=== PATIENT | female | born 1985 | race Caucasian/White ===

== ENCOUNTER 2019-06-08 16:36 | Inpatient (IN) ==
[2019-06-08] MEDS ORDERED: ONDANSETRON 4 MG/2 ML VIAL IV PRN (16:55)
[2019-06-08 17:24] LABS: Basophils % 0.2 % (0.0-0.8); Eosinophils % 0.4 % (0.00-10.9); Hematocrit 32.1 VOL% (35.7-47.0); Hemoglobin 10.9 GM/DL (12.0-16.0); Immature Granulocytes % 0.7 %; Immature Granulocytes Absolute 0.07 #; Lymphocytes # 2.1 10*3/uL (1.4-4.0); Lymphocytes % 20.1 % (21.3-54.2); Mean Corpuscular Volume 96.4 FL (87-102); Mean Platelet Volume 11.8 FL (9.6-12.0); Monocytes % 5.3 % (1.7-12.7); Neutrophils % 73.3 % (38.7-73.9); Platelet Count 160 T/CUMM (130-400); Red Blood Count 3.33 MC/CUMM (3.8-5.5); Red Cell Distribution Width 12.4 % (9.3-17.3); White Blood Count 10.7 T/CUMM (4-12)
[2019-06-08 17:43] LABS: Albumin 2.3 G/DL (3.4-5.0); Bilirubin,Total 0.5 MG/DL (0.2-1.0); Calcium 8.1 MG/DL (8.5-10.1); Osmolality,Calculated 280.1 MOS/KG (273-304); Total Protein 6.3 G/DL (6.4-8.3)
[2019-06-08] MEDS ORDERED: FAMOTIDINE 20 MG/2 ML VIAL IV ONE (18:03)
[2019-06-08] MEDS ORDERED: ePHEDrine 50 MG/ML AMP IV PRN (18:03)
[2019-06-08] MEDS ORDERED: diphenhydrAMINE 50 MG/1 ML VIAL IV PRN ×2 (18:03)
[2019-06-08] MEDS ORDERED: NALOXONE 0.4 MG/ML VIAL IV PRN (18:03)
[2019-06-08] MEDS ORDERED: PROMETHAZINE 25 MG/1 ML VIAL IM ONE (18:03)
[2019-06-08] MEDS ORDERED: hydrOXYzine HCL 25 MG/1 ML VIAL IM PRN (18:03)
[2019-06-08] MEDS ORDERED: ONDANSETRON 4 MG/2 ML VIAL IV ONE (18:03)
[2019-06-08] MEDS ORDERED: CITRIC ACID/SODIUM CITRATE 30 ML UDCUP PO ONE (18:03)
[2019-06-08] MEDS: LACTATED RINGERS 1,000 ML IV SCH ×2 (19:45→23:52)
[2019-06-08] MEDS: fentaNYL 2 MCG/ROPIV 0.2% EPID 100 ML EPIDURAL SCH (20:45)
[2019-06-08 21:49] LABS: Apearance,Urine CLEAR (Clear); Bilirubin,Urine Negative (Negative); Blood, Urine Negative (Negative); Glucose,Urine (UA) Negative (Negative); Ketones,Urine 20 mg/dL (Negative); Mucus,Urine Occasional /LPF (Occasional); Nitrite,Urine Negative (Negative); Protein,Urine Negative; RBC,Urine <1 /HPF (0-4); Squamous Epithelial Cell,Urine Occasional /HPF (0-10); Urine Color Yellow (Yellow); Urine Specific Gravity 1.024 (1.001-1.035); Urine Urobilinogen < 2.0 EU/DL (0.2-1.0); WBC,Urine 1 /HPF (0-6)
[2019-06-09] MEDS: OXYTOCIN/LR 20 UNIT/1,000 ML BAG IV SCH ×2 (02:00→10:22)
[2019-06-09] MEDS ORDERED: ACETAMINOPHEN 325 MG TABLET PO PRN (12:41)
[2019-06-09] MEDS ORDERED: RHO(D) IMMUNE GLOBULIN 300 MCG SYRINGE IM ONE (12:41)
[2019-06-09] MEDS ORDERED: LANOLIN 50% CREAM 0.3 OZ TUBE TOP PRN (12:41)
[2019-06-09] MEDS ORDERED: OXYTOCIN/LR 20 UNIT/1,000 ML BAG IV ONE (12:41)
[2019-06-09] MEDS ORDERED: BENZOCAINE 20%/MENTHOL 0.5% SPRAY 56 GM CAN TOP PRN (12:41)
[2019-06-09] MEDS ORDERED: oxyCODONE/ACETAMINOPHEN 5-325 MG TABLET PO PRN ×2 (12:41)
[2019-06-09] MEDS ORDERED: HYDROCORTISONE 2.5% RECTAL CREAM 30 GM TUBE TOP PRN (12:41)
[2019-06-09] MEDS ORDERED: BISACODYL 10 MG SUPP RECTAL PRN (12:41)
[2019-06-09] MEDS ORDERED: MEASLES/MUMPS/RUBELLA VACCINE 0.5 ML VIAL SUBCUT ONE (12:41)
[2019-06-09] MEDS ORDERED: WITCH HAZEL PADS 100/JAR TOP PRN (12:41)
[2019-06-09] MEDS ORDERED: DIPH/TET/ACEL PERT BOOSTER VACCINE 0.5 ML VIAL IM ONE (12:41)
[2019-06-09] MEDS: IBUPROFEN 800 MG TABLET PO PRN ×2 (14:35→20:33)
[2019-06-09] MEDS: DOCUSATE SODIUM 100 MG CAPSULE PO SCH (20:33)
[2019-06-10] MEDS: LACTATED RINGERS 1,000 ML IV SCH (02:05)
[2019-06-10] MEDS: fentaNYL 2 MCG/ROPIV 0.2% EPID 100 ML EPIDURAL SCH (02:06)
[2019-06-10] MEDS: IBUPROFEN 800 MG TABLET PO PRN ×2 (02:15→07:15)
[2019-06-10 06:21] LABS: Basophils % 0.2 % (0.0-0.8); Eosinophils # 0.1 10*3/uL (0.0-0.87); Eosinophils % 0.6 % (0.00-10.9); Hematocrit 27.5 VOL% (35.7-47.0); Immature Granulocytes % 1.1 %; Immature Granulocytes Absolute 0.11 #; Lymphocytes # 2.1 10*3/uL (1.4-4.0); Mean Corpuscular HGB Conc 32.7 GM/DL (32-36); Mean Corpuscular Volume 100.7 FL (87-102); Mean Platelet Volume 12.1 FL (9.6-12.0); Monocytes % 8.1 % (1.7-12.7); Platelet Count 123 T/CUMM (130-400); Red Blood Count 2.73 MC/CUMM (3.8-5.5); Red Cell Distribution Width 12.3 % (9.3-17.3); White Blood Count 10.2 T/CUMM (4-12)
[2019-06-10] MEDS: DOCUSATE SODIUM 100 MG CAPSULE PO SCH (07:15)
[2019-06-10 07:25] VITALS: BP 94/52
== END 2019-06-10 15:45 | disposition home or self-care (01) | DRG 807 ==
LOC: N.LDOUT 16:36 → N.LD 16:41 → N.OB 06-09 12:40
PROVIDERS: ADMIT Obstetrics & Gynecology; ATTEND Obstetrics & Gynecology